=== PATIENT | female | born 1985 | race African-American/Black ===

== ENCOUNTER 2020-03-29 15:12 | Emergency (ER) | payer SELFPAY | END 2020-03-29 15:16 | disposition left against medical advice (07) | LOC: ED 15:12 | DX: N93.9 Abnormal uterine and vaginal bleeding, unspecified (principal); Z53.21 Procedure and treatment not carried out due to patient leaving prior to being seen by health care provider ==

== ENCOUNTER 2020-05-03 15:05 | Outpatient (CLI) | payer OTHER ==
--- NOTE | 2020-05-03 16:09 | XRay Report ---
LUMBOSACRAL SPINE 3 VIEWS INDICATION: LOWER BACK PAIN X YRS. COMPARISON: None. IMPRESSION: Normal alignment. Mild disc space narrowing is identified at L5-S1. Mild facet arthropa thy at L4-5 and L5-S1. The remaining levels are within normal limits. No acute osseous or soft tissu e abnormality. Signer Name: Talha Engle Jr, MD Signed: 05/03/2020 4:04 PM Workstation Name: [id number]
== END 2020-05-03 15:06 | disposition home or self-care (01) ==
LOC: XRAY 15:05
PROVIDERS: ATTEND Internal Medicine
DX: M47.817 Spondylosis without myelopathy or radiculopathy, lumbosacral region (principal); M48.07 Spinal stenosis, lumbosacral region
CPT/HCPCS: 72100

== ENCOUNTER 2022-01-02 15:52 | Emergency (ER) | payer SELFPAY ==
[2022-01-02 16:38] VITALS: BP 106/55
[2022-01-02] MEDS ORDERED: IPRATROPIUM/ALBUTEROL SULFATE 3 ML AMPUL.NEB IH ONE (17:20)
[2022-01-02] MEDS ORDERED: guaiFENesin DM 200/20 MG ORAL LIQD 10 ML PO ONE (17:20)
[2022-01-02] MEDS ORDERED: predniSONE 20 MG TAB PO ONE (17:20)
--- NOTE | 2022-01-02 17:21 | Emergency Department Report ---
Minor Respiratory - HPI Chief Complaint: Dyspnea/Respdistress Stated Complaint: SOB AND CHEST PAIN Time Seen by Provider: 01/02/22 17:20 Duration: 1 Day Pain Location: Chest Severity: mild Minor Respiratory: Yes Able to Tolerate Fluids, Yes Cough, Yes Shortness of Breath, No Rhinorrhea, No Sore Throat, No Ear Pain, No Sick Contacts, No Hemoptysis, No Chest Pain, No Fever Other History: 36 yo comes in sp asthma attack/anxiety. She has hx of both. on arrival to [facility] she is wheezing but no sob or cp ED Review of Systems ROS: Stated complaint: SOB AND CHEST PAIN Other details as noted in HPI Comment: All other systems reviewed and negative ED Past Medical Hx - Past Medical History Previous Medical History?: Yes Hx Psychiatric Treatment: Yes Hx Asthma: Yes Additional medical history: bipolar - Surgical History Past Surgical History?: Yes Additional Surgical History: right knee - Family History Family history: no significant - Social History Smoking Status: Current Every Day Smoker Substance Use Type: Alcohol, Marijuana, Methamphetamines - Medications Home Medications: Home Medications Medication Instructions Recorded Confirmed Last Taken Type Albuterol Mdi (or & Nicu Only) 2 puff IH QID PRN #1 inhalation 01/02/22 Unknown Rx [ProAir HFA Inhaler] Cetirizine HCl [ZyrTEC] 10 mg PO DAILY #30 capsule 01/02/22 Unknown Rx predniSONE [Deltasone] 20 mg PO DAILY #5 tablet 01/02/22 Unknown Rx Minor Respiratory Exam - Exam General: Vital signs noted. No distress. Alert and acting appropriately. HEENT: Yes Moist Mucous Membranes, No Pharyngeal Erythema, No Pharyngeal Exudates, No Rhinorrhea, No Conjuctival Injection, No Frontal Tenderness, No Maxillary Tenderness Ear: Neither TM Bulge, Neither TM Erythema, Neither EAC Pain, Neither EAC Discharge Neck: Yes Supple, No Adenopathy Lungs: Yes Good Air Exchange, Yes Wheezes, No Ronchi, No Stridor, No Cough, No Labored Respirations, No Retractions, No Use of Accessory Muscles, No Other Abnormal Lung Sounds Heart: Yes Regular, No Murmur Abdomen: Yes Normal Bowel Sounds, No Tenderness, No Peritoneal Signs Skin: No Rash, No Edema Neurologic: Alert and oriented, no deficits. Musculoskeletal: Unremarkable. ED Course Vital Signs 01/02/22 15:52 Temperature 98.1 F Pulse Rate 100 H Respiratory 16 Rate Blood Pressure 106/55 [Right] O2 Sat by Pulse 96 Oximetry ED Medical Decision Making - Medical Decision Making Vital Signs 01/02/22 15:52 Temperature 98.1 F Pulse Rate 100 H Respiratory 16 Rate Blood Pressure 106/55 [Right] O2 Sat by Pulse 96 Oximetry no tachycardia/hypotension or fever ambulatory non toxic duneb/prednisone and guaif. in ER Dc home with dc plan of care including diet, meds, activity and follow up. She verbalizes understanding of plan of care. - Differential Diagnosis asthma ae Critical care attestation.: If time is entered above; I have spent that time in minutes in the direct care of this critically ill patient, excluding procedure time. ED Disposition Clinical Impression: Asthma Disposition: HOME / SELF CARE / HOMELESS Is pt being admited?: No Does the pt Need Aspirin: No Condition: Stable Instructions: Asthma, Adult, Asthma (ED) Additional Instructions: meds as ordered follow up with pcp referral below Prescriptions: predniSONE [Deltasone] 20 mg PO DAILY #5 tablet Albuterol Mdi (or & Nicu Only) [ProAir HFA Inhaler] 2 puff IH QID PRN #1 inhalation PRN Reason: Shortness Of Breath Cetirizine HCl [ZyrTEC] 10 mg PO DAILY #30 capsule Referrals: MELLY COLLINS MD [Staff Physician] - 3-5 Days Time of Disposition: 17:23
== END 2022-01-02 18:11 | disposition home or self-care (01) ==
LOC: ED 15:52
DX: J45.909 Unspecified asthma, uncomplicated (principal); F31.9 Bipolar disorder, unspecified; F17.200 Nicotine dependence, unspecified, uncomplicated; F12.90 Cannabis use, unspecified, uncomplicated; F15.90 Other stimulant use, unspecified, uncomplicated; Z72.89 Other problems related to lifestyle; Z79.899 Other long term (current) drug therapy; Z88.6 Allergy status to analgesic agent
CPT/HCPCS: 94640; 94644; 99283